=== PATIENT | female | born 1950 | race Hispanic/Latino ===

== ENCOUNTER → 2024-10-17 | Outpatient (CLI) | payer OTHER ==
--- NOTE | 2024-10-17 10:48 | HMCIMG ---
CT ABD/PEL WO CON RENAL/APPY HISTORY: Renal stone COMPARISON: None TECHNIQUE: Multiple sequential axial images of the abdomen and pelvis were obtained from the dome of the diaphragm through symphysis pubis. Patient was not given contrast through intravenous route. Oral contrast was not given. FINDINGS: No pleural effusion is seen bilaterally. There is no evidence of parenchymal disease or pulmonary nodule of the visualized lower lungs. Degenerative changes of the thoracolumbar spine are present. The heart is not enlarged. Liver measures 15.4 cm. There may be malrotation of the left kidney. There is diverticulosis. The liver, spleen, adrenal glands and pancreas are unremarkable. There is no evidence of hydronephrosis bilaterally. No evidence of renal stone is seen. Fecal material is seen in the colon. There are normal size retroperitoneal and mesenteric lymph nodes. No ascites is seen. Atherosclerotic changes are present. Pelvic sidewalls are symmetric bilaterally. Bladder is poorly distended. IMPRESSION: 1. Diverticulosis. Fecal material is seen in the colon. Malrotation of left kidney. No CT evidence of renal stone. CT was performed with one or more following dose reduction techniques: automated exposure control, adjustment of the mA and kv according to patient's size, or use of a iterative reconstruction technique.
== END | disposition home or self-care (01) ==
LOC: RAH 09:56
PROVIDERS: ATTEND Family Medicine
DX: K57.90 Diverticulosis of intestine, part unspecified, without perforation or abscess without bleeding (principal); N32.89 Other specified disorders of bladder; Q63.2 Ectopic kidney; M47.815 Spondylosis without myelopathy or radiculopathy, thoracolumbar region; I70.90 Unspecified atherosclerosis; N20.0 Calculus of kidney
CPT/HCPCS: 74176